=== PATIENT | male | born 1955 | race Caucasian/White ===

== ENCOUNTER 2020-12-24 21:23 | Emergency (ER) | payer OTHER, MEDICARE ==
[~2020-12-24] VITALS: Ht 170.2 cm; Wt 66.7 kg
[2020-12-24 21:30] VITALS: BP 136/66
[2020-12-24] MEDS ORDERED: MORPHINE SULFATE ONE ×2 (22:04→23:56)
--- NOTE | 2020-12-24 22:09 | ER.PDOC ---
General Chief Complaint: Requesting Medical Care Stated Complaint: CHEST PAIN Time seen by MD: 21:50 Source: patient Exam Limitations: no limitations History of Present Illness Initial Comments This is a 65-year-old male with a past history of coronary artery disease, status post four-vessel CABG and stents and MIs, peripheral vascular disease, status post revascularization procedure, hypertension and type 2 diabetes. He has been having intermittent chest pain for the past 3 weeks. There are no exacerbating or relieving factors to the chest pain. Over the past hour it has been continuous. He points to an area just to the left of the sternum and states that the pain is sharp and burning. There is occasional radiation up to the left side of the neck and the left proximal upper extremity. There is no dyspnea. He states that he recently saw his PCP at the [facility] and that she called him back saying that his EKG was abnormal and that he may need a cardiac cath.He did take his aspirin and Plavix today. He states he took one nitroglycerin prior to arrival and as usual it did not make any difference in his pain. Allergies: Uncoded Allergies: nka (Allergy, Unknown, 12/24/20) Past Medical History Medical History: coronary artery disease, diabetes, hypertension, vascular disease Surgical History: cardiac cath, coronary bypass surgery, other (Aorto bifemoral bypass) Social History Smoking: non-smoker Alcohol Use: none Drug Use: marijuana Constitutional: denies chills, denies fever EENTM: denies eye pain, denies double vision Respiratory: denies cough, denies shortness of breath Cardiovascular: chest pain; denies syncope Gastrointestinal: denies abdominal pain, denies vomiting Genitourinary: denies dysuria, denies hematuria Musculoskeletal: denies back pain, denies joint pain Skin: denies lesions, denies rash Psychiatric/Neurological: denies anxiety, denies depressed Endocrine: denies increased thrist, denies increased urine Hematologic/Lymphatic: denies easy bleeding, denies easy bruising Physical Exam General Appearance: No Apparent Distress HEENT: PERRL/EOMI, Normal ENT Inspection Neck: Supple, Normal Inspection Respiratory: lungs clear, normal breath sounds, no respiratory distress, other (Small old ecchymosis just below the left mid clavicle) Cardiovascular: Normal Peripheral Pulses, Regular Rate, Rhythm, No Gallop, No JVD, No Murmur Gastrointestinal: Normal Bowel Sounds, Non Tender Extremities: Normal Range of Motion, No Pedal Edema Neurologic/Psychiatric: die tripper II-XII NML as Tested, No Motor/Sensory Deficits, Alert, Normal Mood/Affect, Oriented x 3 Skin: Normal Color, Warm/Dry Lymphatic: No Adenopathy Progress Progress EKG per my interpretation: There is normal sinus rhythm at a rate of 60. QRS complexes are narrow. RI interval is normal. QT interval is normal.There is no ectopy. There is nonspecific T wave flattening in the anterior precordial leads. The patient has a nonischemic EKG and 2 serial negative troponin levels. Therefore there is no evidence of an acute myocardial infarction at this time. Nevertheless, in light of the patient's significant cardiovascular history, I offered hospital admission overnight to observation and further cardiac evaluation. However he declines and wishes to go home. He states that his physician at the [facility] is in the process of setting him up for a cardiology referral and cardiac cath. ER DEPART Departure Time of Disposition: 01:01 Disposition: 01 HOME / SELF CARE / HOMELESS Impression: Primary Impression: Chest pain Condition: Stable Patient Instructions: Chest Pain (Nonspecific) Referrals: FLORENTINO RIGGS [employer] DEVELOPER PROVER (PCP) PRIMARY CARE PROVIDER Duration or Time Spent with Pa: 15 VIC MTZ MD Dec 24, 2020 22:09
--- NOTE | 2020-12-24 22:11 | PCM.EKG ---
[facility] Test Date: 2020-12-24 Test Time: 22:08:47 Pat Name: JORGE PAINTER Department: Room: Gender: M Heel Shaper: SEUN : 1955 Requested By: SANJEEV BONDS Order Number: [id number] Reading MD: Sanjeev Bonds Measurements Intervals [place] Rate: 60 P: 41 [place]: 170 QRS: 32 QRSD: 123 T: -5 QT: 416 QTc: 416 Interpretive Statements Sinus rhythm Nonspecific intraventricular conduction delay Borderline T abnormalities, anterior leads No previous ECG available for comparison Electronically Signed On 12-24-2020 22:19:52 CDT by Sanjeev Bonds Please click the below link to view image of tracing.
[2020-12-24 22:18] LABS: BASOPHIL % 0.3 % (0.0-0.2); EOSINOPHIL # 0.2 10^3/uL (0.0-0.2); EOSINOPHIL % 2.5 % (0.0-5.0); LYMPHOCYTES # 3.19 10^3/uL1 (1.0-4.8); LYMPHOCYTES % 33.5 % (24.0-44.0); MEAN CORP HGB 27.3 pg (26-34); MONOCYTES # 0.6 10^3/uL (0.3-0.8); MONOCYTES % 6.4 % (5.0-12.0); NEUTROPHIL # 5.4 10^3/uL (1.8-7.7); NEUTROPHILS % 57.2 % (41.0-85.0); PLATELET COUNT 242 10^3/uL (150-400); RED CELL DISTRIBUTION WIDTH 14.6 % (11.5-14.5)
--- NOTE | 2020-12-24 22:21 | DIREP ---
PROCEDURE:CHEST 1 VIEW COMPARISON:None. INDICATIONS:chest pain FINDINGS: LUNGS/PLEURA:Minimal airspace disease in the left lung base No effusions. VASCULATURE:Normal. Unremarkable pulmonary vasculature. CARDIAC:Post CABG changes MEDIASTINUM:Normal. No visible mass or adenopathy. BONES:Normal. No fracture or visible bony lesion. OTHER:Negative. CONCLUSION:Minimal infiltrate in the left lung base. Dictated by: Fabio Vieira DO on 12/24/2020 at 10:19 PM
[2020-12-24] MEDS ORDERED: MORPHINE SULFATE IV ONE (22:30)
[2020-12-24 22:40] LABS: ALANINE AMINOTRANSFERASE(ML) 34 U/L (12-78); ALKALINE PHOSPHATASE 76 U/L (50-136); ASPARTATE AMINO TRANSFERASE 22 U/L (0-35); CALCIUM 8.5 mg/dL (8.4-10.5); CARBON DIOXIDE 29.1 mmol/L (20.0-32); GLUCOSE 127 mg/dL (70-110)
[2020-12-24 23:00] VITALS: BP 125/65
[2020-12-25] MEDS ORDERED: MORPHINE SULFATE IV ONE
[2020-12-25] MEDS ORDERED: KLOR-CON 10 PO SCH (01:00)
[2020-12-25 01:40] VITALS: BP 117/63
== END 2020-12-25 01:15 | disposition home or self-care (01) ==
LOC: ER 21:23
DX: R07.89 Other chest pain (principal); I10 Essential (primary) hypertension; E11.51 Type 2 diabetes mellitus with diabetic peripheral angiopathy without gangrene; I25.10 Atherosclerotic heart disease of native coronary artery without angina pectoris; Z79.02 Long term (current) use of antithrombotics/antiplatelets; Z95.1 Presence of aortocoronary bypass graft
CPT/HCPCS: 36415; 71045; 80053; 83880; 84484; 85025; 93005; 96374; 96375; 96376; 99285